=== PATIENT | male | born 1985 | race African-American/Black ===

== ENCOUNTER 2017-08-24 19:03 | Emergency (ER) | payer SELFPAY ==
[~2017-08-24] VITALS: Ht 180.3 cm; Wt 103.0 kg
[2017-08-24] MEDS ORDERED: ONDANSETRON 4MG ODT PO ONE (20:30)
[2017-08-25] MEDS ORDERED: SODIUM CHLORIDE 0.9% 1,000 ML IV ONE (00:05)
[2017-08-25] MEDS ORDERED: ONDANSETRON HCL 4MG/2ML VIAL IV STA (00:05)
[2017-08-25] MEDS ORDERED: MORPHINE SULFATE 4 MG/ML CPJ (NOT FOR IM USE) IV STA (00:05)
[2017-08-25] MEDS ORDERED: FAMOTIDINE 20MG/2ML VIAL IV ONE (00:15)
[2017-08-25 00:26] LABS: HEMATOCRIT. 49.7 % (42.0-52.0); MEAN CORPUSCULAR HEMOGLOBIN 32.3 pg (28.0-32.0); MEAN CORPUSCULAR VOLUME 94.3 fL (80.0-94.0); PLATELET 201 x1000/uL (130-400); RED BLOOD CELL COUNT 5.27 mill/uL (4.7-6.1)
[2017-08-25 00:28] LABS: CHLORIDE 100 mEq/L (98-107)
[2017-08-25 00:32] LABS: INR 1.1; PROTHROMBIN TIME 11.8 sec (9.4-11.6)
[2017-08-25 00:36] LABS: CARBON DIOXIDE 31 mEq/L (21-32)
[2017-08-25 01:37] LABS: CLARITY URINE CLEAR (CLEAR); COLOR URINE DARK YELLOW (YELLOW); KETONES URINE 4+ (NEGATIVE); LEUKOCYTE ESTERASE URINE TRACE (NEGATIVE); NITRITE URINE NEGATIVE (NEGATIVE); OCCULT BLOOD URINE NEGATIVE (NEGATIVE); PH URINE 8.5 (4.5-8.0); PROTEIN URINE 1+ (NEGATIVE); SPECIFIC GRAVITY URINE 1.037 (1.005-1.030)
[2017-08-25] MEDS ORDERED: CLONIDINE 0.1MG TABLET PO ONE (02:15)
[2017-08-25 02:37] LABS: *AMPHETAMINES SCREEN URINE NEGATIVE (NEGATIVE); *BARBITURATES SCREEN URINE NEGATIVE (NEGATIVE); *BENZODIAZEPINES SCREEN URINE NEGATIVE (NEGATIVE); *COCAINE SCREEN URINE PRESUMTIVE POSITIVE (NEGATIVE); CANNABINOID URINE SCREEN PRESUMTIVE POSITIVE (NEGATIVE); METHADONE URINE SCREEN NEGATIVE (NEGATIVE); OPIATES URINE SCREEN NEGATIVE (NEGATIVE); PHENCYCLIDINE URINE SCREEN NEGATIVE (NEGATIVE)
[2017-08-25 04:16] LABS: PLATELET ESTIMATE NORMAL
[2017-08-25 04:59] VITALS: BP 131/76
== END 2017-08-25 06:10 | disposition home or self-care (01) ==
LOC: ER 19:03
DX: R10.84 Generalized abdominal pain (principal); R19.7 Diarrhea, unspecified; R11.2 Nausea with vomiting, unspecified; F17.200 Nicotine dependence, unspecified, uncomplicated; R50.9 Fever, unspecified; R30.0 Dysuria; R05 Cough
CPT/HCPCS: 36415; 71045; 74176; 80053; 80305; 81001; 83690; 85025; 85610; 87804; 96361; 96374; 96375; 99285; J2270; J2405; J3490; J7030; Q0162; Z7610